=== PATIENT | female | born 1990 | race Caucasian/White ===

== ENCOUNTER → 2016-05-14 | Outpatient (CLI) | payer OTHER | LOC: M SMT 11:34 | PROVIDERS: ATTEND Advanced Practice Midwife | DX: O20.0 Threatened abortion (principal) ==

== ENCOUNTER → 2016-05-16 | Outpatient (CLI) | payer OTHER | LOC: M SMT 10:05 | PROVIDERS: ATTEND Advanced Practice Midwife | DX: O20.0 Threatened abortion (principal) ==

== ENCOUNTER → 2016-05-16 | Outpatient (CLI) | payer OTHER ==
--- NOTE | 2016-05-16 16:07 | REP ---
Obstetric sonography: First trimester study: History: Cramping. Question ectopic. Findings: Scanning through the urine filled bladder demonstrates a viable single intrauterine gestation. The crown-rump length of the embryonic pole measures 3 mm. This corresponds to a 6 week 0 day gestational age estimate. heart rate is documented at 157 beats per minute. There is a 1.7 cm corpus luteum cyst in the maternal left ovary. No free fluid is seen. Impression: Viable single intrauterine gestation at 6 weeks 0 days by crown-rump length. MICKIE by sonography 01/09/2017. No complication is identified. Signed by Jayden Swartz MD 05/16/2016 04:53 P
== END ==
LOC: M RAD 15:10
PROVIDERS: ATTEND Obstetrics & Gynecology
DX: O20.0 Threatened abortion (principal)

== ENCOUNTER → 2016-05-30 | Outpatient (CLI) | payer OTHER ==
[2016-05-30 18:44] LABS: BASO % 0.2 % (0.0-1.0); EOS # 0.2 K/mm3 (0.0-0.50); EOS % 2.2 % (0.0-3.0); LARGE UNSTAINED CELL # 0.1 K/mm3 (0.0-0.4); LARGE UNSTAINED CELL % 1.3 % (0.0-4.0); LYMPH # 1.2 K/mm3 (1.5-6.5); MEAN CORPUSCULAR HEMOGLOBIN 31.3 pg (27.0-33.0); MEAN CORPUSCULAR VOLUME 94.7 fl (80.0-96.0); MONO # 0.4 K/mm3 (0.0-0.8); MONO % 5.4 % (0.0-5.0); NEUTROPHILS # 4.8 K/mm3 (1.8-7.7); NEUTROPHILS % 72.8 % (36.0-66.0); PLATELET COUNT, AUTOMATED 226 k/mm3 (150-450); RED CELL DISTRIBUTION WIDTH 11.7 % (11.5-14.5); WHITE BLOOD COUNT 6.6 K/mm3 (4.0-10.0)
[2016-06-02 10:28] LABS: HBsAg Prenatal NEGATIVE (NEGATIVE)
[2016-06-02 14:26] LABS: CONTROL LINE INT CTR LINE PRESENT; HIV SCRN NEGATIVE (NEGATIVE); HIV SCRN1 NEGATIVE (NEGATIVE)
== END ==
LOC: M SMT 13:53
PROVIDERS: ATTEND Specialist
DX: Z34.81 Encounter for supervision of other normal pregnancy, first trimester (principal)

== ENCOUNTER → 2016-07-08 | Outpatient (CLI) | payer OTHER | LOC: M SMT 11:40 | PROVIDERS: ATTEND Specialist | DX: Z36 Encounter for antenatal screening of mother (principal); Z3A.01 Less than 8 weeks gestation of pregnancy ==

== ENCOUNTER → 2016-08-08 | Outpatient (CLI) | payer OTHER, SELFPAY ==
--- NOTE | 2016-08-08 16:05 | REP ---
Obstetric sonography: History: Supervision of for anatomy. Findings: Scanning through the gravid uterus demonstrates a viable single intrauterine gestation in a breech lie. motion is observed and heart rate is recorded at 147 beats per minute. A posterior grade zero placenta is seen without evidence of previa or abruption. Amniotic fluid is subjectively normal. Closed cervical length is 3.6 cm. No extrauterine abnormality is observed. There has been appropriate interval growth. No abnormality is seen. nose and lips are observed and are unremarkable on coronal images. Sagittal images could not be achieved. Four-chamber heart view is less than optimally seen and the feet are less than optimally seen due to position. The following additional anatomic structures are identified today and felt to be sonographically unremarkable: cranium, choroid plexus, cavum, cerebellum and posterior fossa, lungs, left and right ventricular outflow tract views, left-sided stomach, abdominal wall cord insertion, kidneys and bladder, spine, upper and lower extremities. Biometry chart: BPD 4.1 cm = 18 weeks 2 days Head circumference 15.1 cm = 18 weeks 1 day Abdominal circumference 12.3 cm = 18 weeks 0 days Femur length 2.6 cm = 18 weeks 0 days Humeral length 2.6 cm = 18 weeks 2 days HC/AC ratio normal 1.23 cephalic index normal 0.74, estimated weight 220 grams or 7 pounds 7 ounces 63rd percentile for 17 weeks 4 days. Impression: Viable single intrauterine gestation at 18 weeks 1 day by today's composite sonographic criteria. Expected gestational age estimate based on prior sonography is 18 weeks 0 days. MICKIE by prior sonography 01/09/2017. face, four-chamber heart, three-vessel cord, and feet are less than optimally seen. Breech lie. Signed by Jayden Swartz MD 08/08/2016 04:40 P
== END ==
LOC: M RAD 15:06
PROVIDERS: ATTEND Advanced Practice Midwife
DX: Z34.82 Encounter for supervision of other normal pregnancy, second trimester (principal); Z3A.18 18 weeks gestation of pregnancy

== ENCOUNTER → 2016-09-15 | Outpatient (CLI) | payer OTHER ==
[~2016-09-15] MED LIST: ACET50TA PO; IBUP-1114 PO; PRENTAB9 PO; TUMS500C PO
--- NOTE | 2016-09-15 11:57 | REP ---
Clinical: Anatomical evaluation. Comparison: 08/08/2016 . Findings: Examination demonstrates a single live intrauterine in breech presentation. motion is identified by technologist. Placenta is noted posteriorly and grade one without evidence for placenta previa or abruption. Amniotic fluid volume is normal. Cervix measures 3.3 cm in length and appears closed. No evidence for nuchal cord. Gestational age by LMP 23 weeks 0 days with MICKIE 01/12/2017 . Gestational age by current measurements 23 weeks 0 days with MICKIE 01/12/2017 . FHR equals 160 beats per minute. Estimated weight 567 grams ( 50th percentile). Anatomical assessment demonstrates normal structures including cranium, choroid plexus, cavum, cerebellum/posterior fossa, facial features, lungs, four-chamber heart/ventricular outflow tracts, diaphragm, stomach, cord insertion/three-vessel cord, kidneys/bladder, and extremities. Impression: Single live intrauterine in breech presentation demonstrating appropriate interval growth. In conjunction with prior examination anatomical assessment is complete and normal. Signed by Sal Donis MD 09/15/2016 11:49 A
== END ==
LOC: M RAD 09:42
PROVIDERS: ATTEND Advanced Practice Midwife
DX: Z34.82 Encounter for supervision of other normal pregnancy, second trimester (principal); Z3A.23 23 weeks gestation of pregnancy

== ENCOUNTER 2016-09-20 09:31 | Outpatient (CLI) | payer OTHER ==
[~2016-09-20] VITALS: Ht 162.6 cm; Wt 62.0 kg
[2016-09-20 09:48] VITALS: BP 96/56
[2016-09-20] MEDS ORDERED: ACET50TA PO (10:00)
[2016-09-20] MEDS ORDERED: TUMS500C PO (10:00)
[2016-09-20] MEDS ORDERED: PRENTAB9 PO (10:00)
[2016-09-20 10:45] VITALS: BP 103/59
[2016-09-20 12:25] LABS: MEAN CORPUSCULAR HGB CONC 34.4 g/dl (32.0-36.5); MEAN CORPUSCULAR VOLUME 95.9 fl (80.0-96.0); WHITE BLOOD COUNT 12.5 K/mm3 (4.0-10.0)
[2016-09-20 12:41] LABS: ALBUMIN 2.8 GM/DL (3.2-5.2); ALBUMIN/GLOBULIN RATIO 0.88 (1.00-1.93); ALKALINE PHOSPHATASE 75 U/L (45-117); ALT/SGPT 27 U/L (12-78); AMYLASE 46 U/L (25-115); AST/SGOT 36 U/L (15-37); BILIRUBIN,DIRECT < 0.1 MG/DL (0.0-0.2); BILIRUBIN,TOTAL 0.3 MG/DL (0.2-1.0)
--- NOTE | 2016-09-20 12:50 | REP ---
Clinical: Chest pain. Technique: PA and lateral. Comparison: None. Findings: Trace basilar atelectasis. Mediastinum and cardiac silhouette normal. No effusion. No pneumothorax. Skeletal structures intact. Impression: Trace basilar atelectasis. Signed by Sal Donis MD 09/20/2016 12:41 P
[2016-09-20 14:27] VITALS: BP 103/58
[2016-09-20] MEDS ORDERED: CYCLOBENZAPRINE 10 MG TAB PO ONE (15:00)
[2017-01-16] MEDS ORDERED: IBUP-1114 PO (08:30)
== END 2016-09-20 15:30 | disposition home or self-care (01) ==
LOC: M LDO 09:31
PROVIDERS: ATTEND Advanced Practice Midwife
DX: O99.89 Other specified diseases and conditions complicating pregnancy, childbirth and the puerperium (principal); J98.11 Atelectasis; R07.81 Pleurodynia; R06.02 Shortness of breath; R10.12 Left upper quadrant pain; R10.32 Left lower quadrant pain; Z3A.23 23 weeks gestation of pregnancy

== ENCOUNTER → 2016-10-15 | Outpatient (CLI) | payer OTHER ==
[2016-10-15 14:36] LABS: MEAN CORPUSCULAR HEMOGLOBIN 32.9 pg (27.0-33.0); MEAN CORPUSCULAR HGB CONC 34.4 g/dl (32.0-36.5); MEAN CORPUSCULAR VOLUME 95.5 fl (80.0-96.0); RED CELL DISTRIBUTION WIDTH 13.2 % (11.5-14.5); WHITE BLOOD COUNT 10.9 K/mm3 (4.0-10.0)
== END ==
LOC: M LAB 12:25
PROVIDERS: ATTEND Obstetrics & Gynecology
DX: Z36 Encounter for antenatal screening of mother (principal); Z34.82 Encounter for supervision of other normal pregnancy, second trimester

== ENCOUNTER → 2016-12-15 | Outpatient (REF) | payer OTHER | LOC: M LAB REF 16:40 | PROVIDERS: ATTEND Advanced Practice Midwife | DX: Z34.83 Encounter for supervision of other normal pregnancy, third trimester (principal); Z3A.00 Weeks of gestation of pregnancy not specified ==

== ENCOUNTER → 2019-01-27 | Outpatient (CLI) | payer BC ==
[~2019-01-27] MED LIST changes: -ACET50TA PO; +MAPA500T2 PO
[2019-01-27 18:30] LABS: BASO % 0.5 % (0.0-1.0); EOS # 0.4 10^3/uL (0.0-0.5); EOS % 4.3 % (0.0-3.0); HEMATOCRIT 41.1 % (36.0-47.0); HEMOGLOBIN 13.2 g/dl (12.0-15.5); LYMPH # 1.4 10^3/uL (1.5-5.0); LYMPH % 17.2 % (24.0-44.0); MEAN CORPUSCULAR HEMOGLOBIN 31.2 pg (27.0-33.0); MEAN CORPUSCULAR HGB CONC 32.1 g/dl (32.0-36.5); MEAN CORPUSCULAR VOLUME 97.2 fl (80.0-96.0); MONO # 0.6 10^3/uL (0.0-0.8); MONO % 7.6 % (0.0-5.0); NEUTROPHILS # 5.8 10^3/uL (1.5-8.5); NEUTROPHILS % 70.2 % (36.0-66.0); PLATELET COUNT, AUTOMATED 300 10^3/uL (150-450); RED BLOOD COUNT 4.23 10^6/uL (4.00-5.40); WHITE BLOOD COUNT 8.3 10^3/uL (4.0-10.0)
[2019-01-27 22:36] LABS: CHLAMYDIA DNA AMPLIFICATION NEGATIVE (NEGATIVE); GC DNA AMPLIFICATION NEGATIVE (NEGATIVE)
[2019-01-28 10:21] LABS: HIV 1&2 SCREEN CENTAUR NEGATIVE (NEGATIVE); RUBELLA IgG QUALITATIVE IMMUNE (IMMUNE)
== END ==
LOC: M SMT 13:36
PROVIDERS: ATTEND Advanced Practice Midwife
DX: Z34.81 Encounter for supervision of other normal pregnancy, first trimester (principal); Z36.89 Encounter for other specified antenatal screening

== ENCOUNTER → 2019-02-07 | Outpatient (CLI) | payer BC | LOC: M PLALAB 11:58 | PROVIDERS: ATTEND Advanced Practice Midwife | DX: Z34.81 Encounter for supervision of other normal pregnancy, first trimester (principal); Z31.430 Encounter of female for testing for genetic disease carrier status for procreative management ==

== ENCOUNTER → 2019-03-03 | Outpatient (REF) | payer BC | LOC: M SFHCWAGY 13:16 | PROVIDERS: ATTEND Advanced Practice Midwife | DX: Z12.4 Encounter for screening for malignant neoplasm of cervix (principal); R87.610 Atypical squamous cells of undetermined significance on cytologic smear of cervix (ASC-US) | CPT/HCPCS: 87624; G0123 ==

== ENCOUNTER 2019-03-20 18:30 | Emergency (ER) | payer BC ==
[~2019-03-20] VITALS: Ht 162.6 cm; Wt 62.3 kg
[2019-03-20] MEDS ORDERED: ZOFR4TAB16 PO (18:51)
[2019-03-20 19:38] LABS: HEMATOCRIT 40.2 % (36.0-47.0); LYMPH % 2.2 % (24.0-44.0); MEAN CORPUSCULAR HEMOGLOBIN 31.4 pg (27.0-33.0); MEAN CORPUSCULAR HGB CONC 32.3 g/dl (32.0-36.5); MEAN CORPUSCULAR VOLUME 97.1 fl (80.0-96.0); MONO # 0.2 10^3/uL (0.0-0.8); MONO % 2.1 % (0.0-5.0); NEUTROPHILS # 8.1 10^3/uL (1.5-8.5); NEUTROPHILS % 95.2 % (36.0-66.0); PLATELET COUNT, AUTOMATED 214 10^3/uL (150-450); RED BLOOD COUNT 4.14 10^6/uL (4.00-5.40); WHITE BLOOD COUNT 8.6 10^3/uL (4.0-10.0)
[2019-03-20 19:55] LABS: LYMPH # 0.2 10^3/uL (1.5-5.0)
[2019-03-20] MEDS ORDERED: METOCLOPRAMIDE INJ 10MG/2ML VIAL (J2765) IV ONE (20:15)
[2019-03-20] MEDS ORDERED: NS 1,000 ML IV ONE (20:15)
[2019-03-20 20:22] LABS: ALBUMIN 3.3 GM/DL (3.2-5.2); ALT/SGPT 11 U/L (12-78); BILIRUBIN,DIRECT 0.1 MG/DL (0.0-0.2); BILIRUBIN,TOTAL 0.4 MG/DL (0.2-1.0); BLOOD UREA NITROGEN 7 MG/DL (7-18); CALCIUM LEVEL 8.7 MG/DL (8.5-10.1); CARBON DIOXIDE LEVEL 21 MEQ/L (21-32); CHLORIDE LEVEL 107 MEQ/L (98-107); CREATININE FOR GFR 0.53 MG/DL (0.55-1.30); GLOMERULAR FILTRATION RATE > 60.0 (>60); GLUCOSE, FASTING 107 MG/DL (70-100); LIPASE 98 U/L (73-393); POTASSIUM SERUM 3.9 MEQ/L (3.5-5.1); SODIUM LEVEL 139 MEQ/L (136-145)
[2019-03-20] MEDS ORDERED: REGL10TA6 PO (21:20)
[2019-03-20 21:30] VITALS: BP 101/52
== END 2019-03-20 21:32 | disposition home or self-care (01) ==
LOC: M ED 18:30
DX: O21.9 Vomiting of pregnancy, unspecified (principal); O99.342 Other mental disorders complicating pregnancy, second trimester; Z3A.16 16 weeks gestation of pregnancy; Z79.899 Other long term (current) drug therapy
CPT/HCPCS: 80048; 80076; 81001; 83690; 85025; 96361; 96374; 99284; J2765

== ENCOUNTER → 2019-04-15 | Outpatient (CLI) | payer BC ==
[~2019-04-15] MED LIST changes: +REGL10TA6 PO; +ZOFR4TAB16 PO
--- NOTE | 2019-04-15 17:57 | REP ---
Obstetric ultrasound for anatomy: There is a single intrauterine gestation in a transverse lie with the head to the maternal right. There is movement and cardiac activity. The heart rate is 144 beats per minute. The placenta is posterior. There is no previa or abruptio. The placenta is grade 1. The amniotic fluid volume subjectively is normal. The cervix measures 4.4 cm length. Gestational age by today's ultrasound is 19 weeks 5 days/MICKIE 09/04/2019. LMP is unknown. weight is 317 grams/0 pounds, 11 ounces. This is the 51st percentile for 19 weeks 5 days. The following anatomic structures are identified and are unremarkable. Cranium, choroid plexus, cavum septum pellucidum, cerebellum/posterior fossa, facial profile, upper lip, four-chamber heart, cardiac right and left ventricular outflow tracts, diaphragm, stomach, cord insertion, three-vessel cord, kidneys, bladder and upper lower extremities. Suboptimally demonstrated because of position is the spine. A followup study dedicated to the spine might be considered. Otherwise, there are no anomalies. Electronically Signed by Solomon Timmons MD 04/15/2019 05:48 P
== END ==
LOC: M WHC 14:43
PROVIDERS: ATTEND Advanced Practice Midwife
DX: O32.2XX0 Maternal care for transverse and oblique lie, not applicable or unspecified (principal); Z36.89 Encounter for other specified antenatal screening; Z3A.19 19 weeks gestation of pregnancy

== ENCOUNTER → 2019-05-19 | Outpatient (CLI) | payer BC ==
--- NOTE | 2019-05-19 17:34 | REP ---
Obstetric sonography: History: Supervision of , followup anatomy. Comparison study April 15, 2019. spine less than optimally seen. Findings: Scanning through the gravid uterus demonstrates a viable single intrauterine gestation in a transverse, head to the maternal left lie. motion is observed and heart rate is recorded at 139 beats per minute. A posterior grade 0 placenta is seen without evidence of previa or abruption. Amniotic fluid is subjectively normal. Closed cervical length is 3.0 cm measured transabdominally. No extrauterine abnormalities observed. There has been appropriate interval growth. spine is visualized on transverse as well as sagittal images today and is felt to be unremarkable. Biometry chart: BPD 6.1 cm = 25 weeks 0 days HC 22.4 cm = 24 weeks 3 days AC 20.0 cm = 24 weeks 4 days FL 4.3 cm = 24 weeks 2 days HL 4.0 cm = 24 weeks 2 days HC/AC ratio normal 1.12. Cephalic index normal 0.77. Estimated weight 701 grams, 1 pound 8 ounces, 40th percentile for 24 weeks 4 days. Impression: Viable single intrauterine gestation at 24 weeks 1 day by today's composite sonographic criteria. Expected gestational age estimate based on prior sonography is 24 weeks 4 days. MICKIE by prior sonography September 04, 2019. In conjunction with the prior study, anatomic survey is felt to be complete.
== END ==
LOC: M WHC 13:27
PROVIDERS: ATTEND Advanced Practice Midwife
DX: O32.2XX0 Maternal care for transverse and oblique lie, not applicable or unspecified (principal); Z36.89 Encounter for other specified antenatal screening; Z3A.24 24 weeks gestation of pregnancy

== ENCOUNTER → 2019-06-02 | Outpatient (REF) | payer BC ==
[2019-06-02 18:08] LABS: HEMATOCRIT 37.1 % (36.0-47.0); HEMOGLOBIN 11.7 g/dl (12.0-15.5); MEAN CORPUSCULAR HEMOGLOBIN 31.3 pg (27.0-33.0); MEAN CORPUSCULAR HGB CONC 31.5 g/dl (32.0-36.5); MEAN CORPUSCULAR VOLUME 99.2 fl (80.0-96.0); PLATELET COUNT, AUTOMATED 270 10^3/uL (150-450); RED BLOOD COUNT 3.74 10^6/uL (4.00-5.40); WHITE BLOOD COUNT 11.9 10^3/uL (4.0-10.0)
== END ==
LOC: M PLALAB 13:43
PROVIDERS: ATTEND Advanced Practice Midwife
DX: Z34.82 Encounter for supervision of other normal pregnancy, second trimester (principal)

== ENCOUNTER → 2019-08-17 | Outpatient (REF) | payer BC | LOC: M SFHCWAGY 16:37 | PROVIDERS: ATTEND Advanced Practice Midwife | DX: Z34.83 Encounter for supervision of other normal pregnancy, third trimester (principal) ==

== ENCOUNTER 2019-09-01 15:16 | Inpatient (IN) | payer BC ==
[~2019-09-01] VITALS: Ht 162.6 cm; Wt 73.2 kg
[2019-09-01] VITALS (24 sets, daily range): BP systolic 97–144; BP diastolic 52–77
[2019-09-01] MEDS ORDERED: PENICILLIN G POTASSIUM IV 5 MU in D5W MINI-BAG PLUS 100 ML IV STA (15:36)
[2019-09-01] MEDS ORDERED: LACTATED RINGER'S 1000 ML IV STA (15:36)
[2019-09-01] MEDS ORDERED: LR 1,000 ML IV SCH (15:36)
--- NOTE | 2019-09-01 15:55 | HPEPDOC ---
Obstetrical History & Physical General Date of Admission Sep 01, 2019 at 15:29 Primary Care Physician: APRIL LAYTON CNM History of Present Illness Patient is a 29-year-old female who is a who is 39.6 weeks gestation with an MICKIE of 09/02/19 based off of her LMP and consistent with her first trimester ultrasound. She initiated care in her first trimester with [facility]. Her has been uncomplicated. She presents to L&D with complaints of contractions. She reports active movement. She denies leaking of fluid or vaginal bleeding. Information Provided By: Patient Age: 29 : 3 Term: 1 Pre-term: 0 Abortions: 1 Livin Care Care: Good Care Dating Final EDC: Sep 02, 2019 Final EDC by: LMP EGA at Admission: 39.6 Antepartum Course Height (inches): 64 Pre- weight (lbs.): 135 Admission Weight (lbs.): 161 Change in Weight (lbs.): 24 Past Medical History Past Obstetrical History : Past Obstetrical History: Primgravida Gestation: 40.2 Type of Delivery: Spontaneous Vaginal Del. (01/2017) Sex of : Female (6 lbs 15 oz.) Complications: No ADMINISTRATIVE PROGRAM SPECIALIST History: Spontaneous Past Medical History Medical History non-contributory Surgical History: Tooth extraction, Other (Sinus surgery) Family History Significant Family History: Cancer (breast cancer and liver cancer), Other (hepatitis) Social History Marital Status: Family situation: Spouse/partner home Psychosocial History: No pertinent psych hx * Smoker: non-smoker Alcohol: Denies Drugs: denies Abuse Violence Screening Have you been hit/kicked/slapp: No Have you been sexually assault: No Allergies Coded Allergies: No Known Allergies (Unverified , 09/20/16) Medications Scheduled No.137/Iron/Folic Acd ( Vitamin Tablet) 1 Tab Tab, 1 TAB PO DAILY Scheduled PRN Acetaminophen (Mapap) 500 Mg Tab, 1,000 MG PO for PAIN OR FEVER Metoclopramide HCl (Reglan) 10 Mg Tablet, 10 MG PO Q6H PRN for NAUSEA Ondansetron HCl (Zofran) 4 Mg Tablet, 4 MG PO Q6-8HP PRN for nausea/vomiting Physical Examination Physical Examination GENERAL: Alert and oriented times three. BREAST: . ABDOMEN: Gravid and non-tender to touch. FETUS: Is vertex (VTX) by sterile vaginal examination (SVE), fetus is vertex (VTX) by Fer. HEART RATE: Regular rate and rhythm. LUNGS: Clear to auscultation (CTA). EXTREMITIES: No edema. No clonus. Deep tendon reflexes (DTRs) + 2. Laboratory Data 24H LABS Laboratory Tests 2 09/01/19 15:32: Serology Scanned Report Hepatitis B Testing Urine Culture: No Growth Pertinent Laboratoy Data Blood Type: A+ RBC Antibody Screen: Negative HIV: Negative Hepatitis B: Negative Hepatitis C: Negative Rapid Plasma Reagin: Nonreactive Rubella: Immune Chlamydia/Gonorrhea: Negative Group B Streptococcus: Positive Glucose Tolerance Test: 91 Vaginal Examination Dilation: 5 cm Effacement: 100% Station: 0 Presentation: Cephalic presentation Position: Vertex (occiput) Assessment Heart Rate (FHR): 130 Variability: Moderate Accelerations: Positive Decelerations: None Tocometer Contractions: Yes Frequency: regular Strength: palpated as moderate Multi-drug resistant Organism: No history of MDRO Assessment/Plan Assessment IUP at 39.6 weeks gestation Category I FHR tracing GBS positive active labor Plan Admit to L&D. OOB ad graham. Diet: clears. Group B Streptococcus (GBS) positive. Antibiotics ordered and to be started. Labs and intravenous (IV) per unit protocol. Anesthesia consult per patient's request. Lactated Ringers (LR): Bolus 800 mL prior to epidural, then at 125 mL/hr. Anticipate cervical change and . C-S as appropriate. APRIL LAYTON CNM Sep 01, 2019 15:55
[2019-09-01 16:02] LABS: HEMATOCRIT 36.9 % (36.0-47.0); HEMOGLOBIN 11.9 g/dl (12.0-15.5); MEAN CORPUSCULAR HEMOGLOBIN 30.1 pg (27.0-33.0); MEAN CORPUSCULAR HGB CONC 32.2 g/dl (32.0-36.5); MEAN CORPUSCULAR VOLUME 93.2 fl (80.0-96.0); PLATELET COUNT, AUTOMATED 262 10^3/uL (150-450); RED BLOOD COUNT 3.96 10^6/uL (4.00-5.40); WHITE BLOOD COUNT 12.7 10^3/uL (4.0-10.0)
[2019-09-01] MEDS ORDERED: FENTANYL 2MCG/ML ROPIVACAINE 0.2% IN 0.9% NACL 100ML IVBAG As Ordered ONE (16:48)
[2019-09-01] MEDS ORDERED: ONDANSETRON 4MG/2ML VIAL IV PRN (18:15)
[2019-09-01] MEDS ORDERED: EPIDURAL/PCA KEYS XX PRN (18:15)
[2019-09-01] MEDS ORDERED: NALOXONE INJ 0.4MG/1ML VIAL (J2310 PER 1MG) IV PRN (18:15)
[2019-09-01] MEDS ORDERED: diphenhydrAMINE 50MG/ML VIAL (J1200) IV PRN (18:15)
[2019-09-01] MEDS ORDERED: LACTATED RINGER'S 1000 ML IV PRN (18:15)
[2019-09-01] MEDS ORDERED: REFRIGERATOR IV KEYS XX PRN (18:15)
[2019-09-01] MEDS ORDERED: EPIDURAL COMMENT XX SCH (18:15)
[2019-09-01] MEDS ORDERED: FENTANYL/ROPIVACAINE/NACL BAG 100 ML EPIDURAL SCH (18:15)
[2019-09-01] MEDS ORDERED: ePHEDrine SULFATE 25 MG/5 ML(5MG/ML) SYRINGE IV PRN (18:15)
[2019-09-01] MEDS ORDERED: OXYTOCIN 30 UNITS IN 0.9% NaCl 500ML IV BAG (J2590) As Ordered ONE (19:19)
[2019-09-01] MEDS ORDERED: PENICILLIN G POTASSIUM IV 2.5 MU in IV 1 EA IV SCH (20:00)
--- NOTE | 2019-09-01 20:24 | IPNPDOC ---
Obstetrical Progress Note Date of Service Sep 01, 2019 Subjective Patient is comfortable with her epidural. Objective Vital Signs Date Time Temp Pulse Resp B/P (MAP) Pulse Ox O2 Delivery O2 Flow Rate FiO2 09/01/19 19:36 71 106/61 (76) 09/01/19 19:06 16 09/01/19 15:51 97.9 Assessment Heart Rate (FHR): 140 Variability: Moderate Accelerations: Positive Decelerations: None Heart Rate Tracing: Category I Tocometer Contractions: Yes Frequency: regular Sterile Vaginal Examination Dilation: 9 cm Effacement (%): 100% Station: 0 Postion/Presentation: Cephalic presentation Assessment and Plan EGA at Admission: 39.6 Status: Reassuring Group B Streptococcus: Positive Anticipate: Vaginal Delivery Additional Comments AROM to a moderate amount of clear fluid. APRIL LAYTON CNM Sep 01, 2019 20:24
[2019-09-01] MEDS ORDERED: OXYTOCIN DRIP 30 UNITS in IV 1 EA IV SCH (21:18)
[2019-09-01] MEDS ORDERED: DOCUSATE SODIUM 100 MG CAP PO PRN (21:30)
[2019-09-01] MEDS ORDERED: DIBUCAINE 1% OINTMENT 30GM TOP PRN (21:30)
[2019-09-01] MEDS ORDERED: MEASLES,MUMPS,RUBELLA VACCINE INJ (MMR-II) (90707) SC SCH (21:30)
[2019-09-01] MEDS ORDERED: ACETAMINOPHEN TAB 650MG DOSE (2X325MG) PO PRN (21:30)
[2019-09-01] MEDS ORDERED: ANUSOL HC CREAM 30GM TOP PRN (21:30)
[2019-09-01] MEDS ORDERED: METHYLERGONOVINE MALEATE 0.2 MG TAB PO PRN (21:30)
[2019-09-01] MEDS ORDERED: RHOGAM 300 MCG (1500 IU) INJ (J2790) IM SCH (21:30)
[2019-09-01] MEDS ORDERED: IBUPROFEN 600MG TAB PO PRN (21:30)
--- NOTE | 2019-09-01 21:50 | DNPDOC ---
[facility] Delivery Note Delivery Note DATE OF DELIVERY: 09/01/19 at 2043 PREDELIVERY DIAGNOSIS: 39-6/7 weeks' gestation and labor. POST DELIVERY DIAGNOSIS: Delivered. PROCEDURE: Spontaneous vaginal delivery. [employer] ARCHITECT: April Workman CNM, VIANEY ANESTHESIA: epidural. ESTIMATED BLOOD LOSS: 200 mL. FINDINGS: 7 pounds 5 ounce; 3310 grams; female infant, Score 8/9. DELIVERY SUMMARY: Patient is a 29-year-old female who is a who presented to L&D in active labor. She received an epidural for pain management. She progressed to fully dilated at 2033. She pushed to a living female in the PARAM position with restitution to LOT. The anterior shoulder delivered with ease and the corpus immediately followed. The baby was placed on the maternal abdomen active and crying with stimulation. The cord was clamped after pulsation ceased and cut by the FOB. A 3-vessel cord was noted. The placenta delivered spontaneously at 2049. She had a small amount of training membranes that were re moved with a uterine sweep. Uterine hemostasis was achieved via rapid infusion of IV Pitocin and fundal massage. The vagina, perineum, and cervix was inspected and found to have a left labial laceration that wasn't repaired. She plans to breastfeed. They are naming their daughter Elijah. Both mom and baby are instable condition. All instruments and sponge counts are correct. APRIL WORKMAN CNM Sep 01, 2019 21:50
[2019-09-02 06:32] VITALS: BP 95/51
--- NOTE | 2019-09-02 08:49 | IPNPDOC ---
Progress Note Date of Service: Sep 02, 2019 Day#: 1 Progress Note SUBJECT: Patient is a 29-year-old who is now a who had an uncomplicated vaginal delivery. She has been ambulating, voiding spontaneously without issue and tolerating regular diet. Breast feeding without issue. OBJECTIVE: VITAL SIGNS: Within normal limits, afebrile. Alert and oriented times three. Breath sounds clear to auscultation. Heart rate: Regular rate and rhythm, no murmurs, rubs or gallops. Abdomen: Fundus firm at U-2. Soft, NTTP. Minimal lochia. ASSESSMENT: Day 1 PLAN: 1. Continue supportive nursing care. 2. Anticipate discharge to home tomorrow. VS, I&O, 24H, Fishbone Vital Signs/I&O Vital Signs Date Time Temp Pulse Resp B/P (MAP) Pulse Ox O2 Delivery O2 Flow Rate FiO2 09/02/19 06:32 98.4 83 18 95/51 (66) 09/01/19 23:35 99 I&O- Last 24 Hours up to 6 AM 09/02/19 06:00 Intake Total 2195 ml Output Total 200 ml Balance 1995 ml Laboratory Data 24H LABS Laboratory Tests 2 09/01/19 15:32: Serology Scanned Report Hepatitis B Testing 09/01/19 15:53: Nucleated Red Blood Cells % (auto) 0.0 CBC/BMP Laboratory Tests 09/01/19 15:53 APRIL LAYTON CNM Sep 02, 2019 08:49
[2019-09-02] MEDS: PRENATAL VITAMINS CHEWABLE TABLET PO SCH (08:53)
[2019-09-02] MEDS: IBUPROFEN 800 MG TAB PO PRN ×2 (09:01→18:30)
[2019-09-02] MEDS: ACETAMINOPHEN 500 MG TAB PO PRN (14:15)
[2019-09-02 18:36] VITALS: BP 112/62
[2019-09-03] MEDS: ACETAMINOPHEN 500 MG TAB PO PRN (01:22)
[2019-09-03 06:00] VITALS: BP 109/59
[2019-09-03] MEDS: PRENATAL VITAMINS CHEWABLE TABLET PO SCH (07:20)
== END 2019-09-03 13:35 | disposition home or self-care (01) | DRG 560 ==
LOC: M LDO 15:16 → M LDI 15:29 → M OBS 23:03
PROVIDERS: ADMIT Advanced Practice Midwife; ATTEND Advanced Practice Midwife
PROC: 10E0XZZ Delivery of Products of Conception, External Approach (ICD-10-PCS; principal; 2019-09-01)
DX: O99.284 Endocrine, nutritional and metabolic diseases complicating childbirth (principal); Z37.0 Single live birth; Z3A.39 39 weeks gestation of pregnancy; O70.0 First degree perineal laceration during delivery

== ENCOUNTER 2020-07-31 18:21 | Emergency (ER) | payer BC ==
[~2020-07-31] VITALS: Ht 162.6 cm; Wt 61.7 kg
[2020-07-31 18:21] VITALS: BP 119/73
== END 2020-07-31 19:35 | disposition left against medical advice (07) ==
LOC: M ED 18:21
DX: Z53.21 Procedure and treatment not carried out due to patient leaving prior to being seen by health care provider (principal)

== ENCOUNTER → 2022-08-07 | Outpatient (CLI) | payer BC ==
[2022-08-07 18:07] LABS: HEMATOCRIT 39.3 % (36.0-47.0); HEMOGLOBIN 13.2 g/dl (12.0-15.5); MEAN CORPUSCULAR HEMOGLOBIN 32.4 pg (27.0-33.0); MEAN CORPUSCULAR HGB CONC 33.6 g/dl (32.0-36.5); MEAN CORPUSCULAR VOLUME 96.3 fl (80.0-96.0); PLATELET COUNT, AUTOMATED 257 10^3/uL (150-450); RED BLOOD COUNT 4.08 10^6/uL (4.00-5.40)
[2022-08-07 18:25] LABS: BLOOD UREA NITROGEN 16 MG/DL (9-23); CALCIUM LEVEL 9.1 MG/DL (8.5-10.1); CARBON DIOXIDE LEVEL 29 MMOL/L (20-31); CHLORIDE LEVEL 105 MMOL/L (98-107); CREATININE FOR GFR 0.61 MG/DL (0.55-1.30); GLOMERULAR FILTRATION RATE > 60.0 (>60); GLUCOSE, FASTING 129 MG/DL (60-100); POTASSIUM SERUM 3.6 MMOL/L (3.5-5.1); SODIUM LEVEL 140 MMOL/L (136-145)
== END ==
LOC: M PLALAB 16:24
PROVIDERS: ATTEND Plastic Surgery Surgery of the Hand
DX: N64.81 Ptosis of breast (principal)

== ENCOUNTER 2022-08-18 06:02 | Observation (INO) | payer SELFPAY ==
[2022-08-18] VITALS (7 sets, daily range): BP systolic 96–119; BP diastolic 59–64; TEMP 97.9–98.4; O2SAT 96–97
[~2022-08-18] VITALS: Ht 162.6 cm; Wt 61.9 kg
[~2022-08-18 06:02] MED LIST changes: +ceFAZolin SOD 2 GM in IV 1 EA IV ONE
[2022-08-18] MEDS ORDERED: LR 1,000 ML IV SCH ×2 (06:30→11:45)
[2022-08-18] MEDS ORDERED: HYDROmorphone HCL 2MG/ML 1ML VIAL As Ordered ONE (06:55)
[2022-08-18] MEDS ORDERED: MIDAZOLAM INJ 2MG/2ML VIAL As Ordered ONE (06:55)
[2022-08-18] MEDS ORDERED: fentaNYL 100 MCG/2 ML INJECTION As Ordered ONE (06:55)
[2022-08-18] MEDS ORDERED: ACETAMINOPHEN 1000MG 100ML IV BAG As Ordered ONE (06:56)
[2022-08-18] MEDS ORDERED: ROCURONIUM BROMIDE 50MG/5ML VIAL As Ordered ONE ×2 (07:02→08:05)
[2022-08-18] MEDS ORDERED: SUGAMMADEX SODIUM 500 MG/5 ML VIAL (BRIDION) As Ordered ONE (07:02)
[2022-08-18] MEDS ORDERED: propofoL 200 MG/20 ML VIAL As Ordered ONE (07:02)
[2022-08-18] MEDS ORDERED: LIDOCAINE 2% 100MG/5ML SDV (FOR ANES.) As Ordered ONE (07:04)
[2022-08-18] MEDS ORDERED: ONDANSETRON 4MG 2ML VIAL As Ordered ONE (07:06)
[2022-08-18] MEDS ORDERED: LIDOCAINE 1% MDV 20ML VIAL As Ordered ONE (07:23)
[2022-08-18] MEDS ORDERED: GENTAMICIN SULF 80MG/2ML VIAL As Ordered ONE (07:23)
[2022-08-18] MEDS ORDERED: EPINEPHrine INJ 1 MG/ML 1ML AMP As Ordered ONE (07:23)
[2022-08-18] MEDS ORDERED: BUPIVACAINE HCL 0.25% 30ML VIAL As Ordered ONE (07:23)
[2022-08-18] MEDS ORDERED: BUPIVACAINE LIPOSOME/PF 1.3% 20ML VIAL (13.3MG/ML)(EXPAREL) As Ordered ONE (07:23)
[2022-08-18] MEDS: SCOPOLAMINE 1MG TRANSDERMAL PATCH TOP SCH ×2 (07:42→08:40)
[2022-08-18] MEDS ORDERED: ESMOLOL INJ 100MG/10ML VIAL As Ordered ONE (08:01)
[2022-08-18] MEDS ORDERED: ePHEDrine SULFATE 25 MG/5 ML(5MG/ML) SYRINGE As Ordered ONE (08:58)
[2022-08-18] MEDS ORDERED: METOCLOPRAMIDE INJ 10MG/2ML VIAL As Ordered ONE (10:25)
[2022-08-18] MEDS ORDERED: fentaNYL 100 MCG/2 ML INJECTION IV PRN (11:45)
[2022-08-18] MEDS ORDERED: ONDANSETRON 4MG 2ML VIAL IV PRN ×2 (11:45→11:50)
[2022-08-18] MEDS ORDERED: ACETAMINOPHEN TAB 650MG DOSE (2X325MG) PO PRN (11:50)
[2022-08-18] MEDS ORDERED: ceFAZolin SOD 2 GM in IV 1 EA IV ONE (12:00)
[2022-08-18] MEDS: HYDROMORPHONE HCL 0.5 MG/ 0.5 ML SYRINGE IV PRN ×4 (12:11→12:40)
[2022-08-18] MEDS: oxyCODONE 5MG TAB PO PRN ×2 (12:11→12:41)
[2022-08-18] MEDS: LR 1,000 ML IV SCH (17:15)
[2022-08-18] MEDS: traMADol 50 MG TAB PO PRN (17:16)
[2022-08-18] MEDS: PERCOCET 5MG/325MG TAB PO PRN (21:01)
[2022-08-19] MEDS: traMADol 50 MG TAB PO PRN ×2 (01:11→06:37)
[2022-08-19 02:00] VITALS: BP 97/56; TEMP 97.6; O2SAT 94
[2022-08-19] MEDS: LR 1,000 ML IV SCH (03:04)
[2022-08-19] MEDS: PERCOCET 5MG/325MG TAB PO PRN ×2 (03:09→09:24)
[2022-08-19 05:43] VITALS: BP 96/55; TEMP 97.7; O2SAT 96
[2022-08-19 07:16] VITALS: O2SAT 96
[2022-08-19] MEDS ORDERED: OXYC1TAB23 PO (11:00)
== END 2022-08-19 12:30 | disposition home or self-care (01) ==
LOC: M SDC 06:02 → M RR INP 06:03 → M MS5PR 16:05
PROVIDERS: ADMIT Plastic Surgery Surgery of the Hand; ATTEND Plastic Surgery Surgery of the Hand
DX: N64.81 Ptosis of breast (principal); E88.1 Lipodystrophy, not elsewhere classified; K21.9 Gastro-esophageal reflux disease without esophagitis
CPT/HCPCS: 15877; 19316; 81025; 96365; 96375; 96376; C9290; J0131; J0171; J0690; J1100; J1170; J1580; J2250; J2405; J2765; J3010; S0020

== ENCOUNTER → 2022-11-11 | Outpatient (REF) | payer BC ==
[~2022-11-11] MED LIST changes: +OXYC1TAB23 PO; -ceFAZolin SOD 2 GM in IV 1 EA IV ONE
== END ==
LOC: M SFHCWAGY 17:41
PROVIDERS: ATTEND Advanced Practice Midwife
DX: Z12.4 Encounter for screening for malignant neoplasm of cervix (principal)
CPT/HCPCS: 87624; G0123

== ENCOUNTER → 2022-11-28 | Outpatient (REF) | payer BC | LOC: M SFHCWAGY 17:19 | PROVIDERS: ATTEND Advanced Practice Midwife | DX: N90.89 Other specified noninflammatory disorders of vulva and perineum (principal) ==